=== PATIENT | female | born 1985 | race Caucasian/White ===

== ENCOUNTER 2023-11-17 07:41 | Emergency (ER) | payer MEDICAID ==
[~2023-11-17] VITALS: Ht 167.6 cm; Wt 86.2 kg
== END 2023-11-17 08:09 | disposition left against medical advice (07) ==
LOC: ED 07:41
DX: O26.891 Other specified pregnancy related conditions, first trimester (principal); Z3A.12 12 weeks gestation of pregnancy; Z76.0 Encounter for issue of repeat prescription; Z53.29 Procedure and treatment not carried out because of patient's decision for other reasons